=== PATIENT | male | born 1960 | race Caucasian/White ===

== ENCOUNTER 2021-03-17 12:03 | Outpatient (CLI) | payer BC ==
--- NOTE | 2021-03-17 16:57 | XRAY Report ---
PROCEDURE: Lumbar Spine 2 View INDICATIONS: LOW BACK PX TECHNIQUE: 3 views of the lumbar spine were acquired. COMPARISON: None. FINDINGS: Bones: 6 [id number] vertebrae are present. There is normal bony alignment. Degenerative endplat e changes are noted at L5-S1 and S1 2 level. No vertebral body compression fractures. No suspicious bony lesions. Soft tissues: Overlying bowel gas pattern is normal. No suspicious soft tissue calcifications. IMPRESSION: Transitional anatomy with 6 nonrib-bearing lumbar-type vertebral bodies. Degenerative dis c disease in lower lumbar spine. No acute compression fracture or spondylolisthesis. Reviewed by: Ori Velasquez MD on 03/17/2021 4:56 PM PDT Approved by: Ori Velasquez MD on 03/17/2021 4:56 PM PDT Station ID: [id number]
== END 2021-03-17 23:59 | disposition home or self-care (01) ==
LOC: DI.N 12:03
PROVIDERS: ATTEND Nurse Practitioner
DX: M54.5 Low back pain (principal); M51.36 Other intervertebral disc degeneration, lumbar region; M51.37 Other intervertebral disc degeneration, lumbosacral region

== ENCOUNTER 2023-09-20 14:45 | Outpatient (CLI) | payer SELFPAY ==
--- NOTE | 2023-09-20 18:32 | XRAY Report ---
PROCEDURE: Thoracic Spine 3 View INDICATIONS: THORACIC BACK PAIN TECHNIQUE: 3 views of the thoracic spine were acquired. COMPARISON: None. FINDINGS: Bones: No fractures or dislocations. No suspicious bony lesions. Mild degenerative disc disease at T2-T3. 12 pairs of ribs are noted, and appear intact where visualized. Soft tissues: No paravertebral stripe thickening. IMPRESSION: No acute bony abnormality. Mild degenerative disc disease. If clinical symptoms persist, consider MRI for further evaluation. Reviewed by: Damian Feliciano MD on 09/20/2023 6:30 PM PST Approved by: Damian Feliciano MD on 09/20/2023 6:30 PM PST Station ID: [id number]
== END 2023-09-20 15:00 | disposition home or self-care (01) ==
LOC: DI.N 14:45
PROVIDERS: ATTEND Physician Assistant Medical
DX: M51.34 Other intervertebral disc degeneration, thoracic region (principal)

== ENCOUNTER 2023-09-20 15:00 | Outpatient (CLI) | payer SELFPAY ==
[2023-09-20 17:52] LABS: BASOPHILS # (AUTO) 0.1 10^3/uL (0.0-0.1); BASOPHILS % (AUTO) 0.6 %; EOSINOPHILS # (AUTO) 0.2 10^3/uL (0.0-0.7); EOSINOPHILS % (AUTO) 2.2 %; HCT - HEMATOCRIT 43.4 % (42.0-52.0); HGB - HEMOGLOBIN 14.5 g/dL (14.0-18.0); LYMPHOCYTES # (AUTO) 1.7 10^3/uL (1.5-3.5); LYMPHOCYTES % (AUTO) 22.3 %; MEAN CORPUSCULAR HEMOGLOBIN 31.6 pg (27.0-31.0); MEAN CORPUSCULAR HGB CONC 33.4 g/dL (32.0-36.0); MEAN CORPUSCULAR VOLUME 94.6 fL (80.0-94.0); MEAN PLATELET VOLUME 10.2 fL (7.4-11.4); MONOCYTES # (AUTO) 0.5 10^3/uL (0.0-1.0); NEUTROPHILS # (AUTO) 5.3 10^3/uL (1.5-6.6); NEUTROPHILS % (AUTO) 67.6 %; PLT - PLATELET COUNT 240 10^3/uL (130-450); RED BLOOD COUNT 4.59 10^6/uL (4.70-6.10); RED CELL DISTRIBUTION WIDTH 11.9 % (12.0-15.0); WHITE BLOOD COUNT 7.8 x10^3/uL (4.8-10.8)
[2023-09-20 18:05] LABS: CALCIUM 9.5 mg/dL (8.5-10.3); POTASSIUM 4.2 mmol/L (3.5-4.5)
[2023-09-20 18:20] LABS: THYROID STIMULATING HORMONE 1.62 uIU/mL (0.34-5.60)
== END 2023-09-20 15:15 | disposition home or self-care (01) ==
LOC: LAB.N 15:00
PROVIDERS: ATTEND Physician Assistant Medical
DX: R55 Syncope and collapse (principal)
CPT/HCPCS: 36415; 80048; 84443; 85025